=== PATIENT | male | born 1980 | race Caucasian/White ===

== ENCOUNTER 2017-03-13 10:57 | Day surgery (SDC) | payer OTHER ==
[~2017-03-13 10:57] MED LIST: ALTACE10 MG PO; ASPIRIN325 M1 PO; BACTRIM DS TAB1 EAC2 PO; EQL FISH OIL 1,1 CA1 PO; HYDROCHLOROTHIA50 M1 PO; LOTREL 10-20 M1 EACH PO; NORVASC5 MG PO; RAMIPRIL PO; SULFAMYLON60 GM EXT; ZOCOR40 M1 PO
[2017-08-28] MEDS ORDERED: VALIUM5 M1 PO (18:01)
[2017-08-28] MEDS ORDERED: PERCOCET 5-3251 EACH PO (18:01)
== END 2017-03-13 15:35 ==
LOC: SRG 10:57 → SHSC 10:58 → PACU 13:32 → SHSC 14:05
PROC: 0HB4XZZ Excision of Neck Skin, External Approach (ICD-10-PCS; principal; 2017-03-13)
DX: D17.0 Benign lipomatous neoplasm of skin and subcutaneous tissue of head, face and neck (principal); E78.5 Hyperlipidemia, unspecified; I10 Essential (primary) hypertension; J18.9 Pneumonia, unspecified organism; J02.9 Acute pharyngitis, unspecified; J01.90 Acute sinusitis, unspecified; R05 Cough; L03.116 Cellulitis of left lower limb; L72.3 Sebaceous cyst; R60.9 Edema, unspecified; Z68.44 Body mass index [BMI] 60.0-69.9, adult; Z79.899 Other long term (current) drug therapy; Z98.890 Other specified postprocedural states; Z83.3 Family history of diabetes mellitus; Z82.49 Family history of ischemic heart disease and other diseases of the circulatory system; Z78.9 Other specified health status
CPT/HCPCS: J0690